=== PATIENT | female | born 2000 | race Caucasian/White ===

== ENCOUNTER 2023-11-02 09:00 | Inpatient (IN) ==
[2023-11-02] MEDS ORDERED: LIDOCAINE 1% LOCAL 20 ML VIAL INFIL PRN (09:09)
[2023-11-02] MEDS: LACTATED RINGER'S 1,000 ML IV PRN (09:25)
[2023-11-02 10:13] LABS: Hematocrit (blood only) 37.4 % (37.0-47.0); Hemoglobin 12.6 g/dl (12.0-16.0); Mean Corpuscular Hemoglobin 27.8 pg (25.0-34.0); Mean Corpuscular Hgb Conc 33.7 g/dL (32.0-36.0); Mean Corpuscular Volume 82.6 fL (80.0-100.0); Mean Platelet Volume 11.1 fL (9.4-12.4); Platelet Count 251 K/uL (130-400); RDW Coefficient of Variation 13.1 % (11.5-14.5); RDW Standard Deviation 39.1 fL (36.4-46.3); Red Blood Count 4.53 M/uL (4.20-5.40); White Blood Count 26.82 K/ul (4.8-10.8)
--- NOTE | 2023-11-02 10:23 | Anesthesiology Consultation ---
Date of Service November 02, 2023 Assessment & Plan (1) Encounter for pre-operative examination: Chart Review Chart Review: Acceptable Risk for Labor Epidural History Height/Weight Height: 5 ft 3 in Weight: 92.533 kg Allergies Allergy/AdvReac Type Severity Reaction Status Date / Time No Known Allergies Allergy Verified 11/02/23 09:20 Medications Home Medications Medication Instructions Recorded Confirmed Last Taken vits,calcium 21-iron fum 1 tab PO HS 04/23/23 11/02/23 11/01/23 14 mg iron-folic acid 400 mcg tablet ( Complete) omeprazole 10 mg capsule,delayed 10 mg PO DAILY 10/31/23 11/02/23 11/01/23 release Active Medications Generic Name Dose Route Start Last Admin Trade Name Freq PRN Reason Stop Dose Admin Lactated Ringer's 1,000 mls @ 125 mls/hr 11/02/23 09:09 11/02/23 10:22 Lr IV 11/04/23 09:08 999 mls/hr .Q8H PRN Administration L&D Protocol Protocol Past Medical History Medical History History of chicken pox Past Family History Family History Denies family history of Ovarian cancer Breast cancer Colorectal cancer Past Surgical History Surgical History No history of previous surgery Social History Smoking Status: Former smoker Do You Dip or Chew Tobacco: No Hx Alcohol Use: No Hx Substance Use: No substance use type: does not use Physical Exam Vital Signs Last Vital Signs Temp 37 C 11/02/23 09:19 Pulse 96 H 11/02/23 10:20 Resp 16 11/02/23 09:19 BP 117/63 11/02/23 09:06 Pulse Ox 91 11/02/23 10:20 Testing Laboratory Results 11/02/23 09:39
[2023-11-02] MEDS: fentaNYL citrate PF 100 MCG/2 ML VIAL ONE (10:51)
[2023-11-02] MEDS: LIDOCAINE 2%/EPINEPHRINE 1:200,000 20 ML PF ONE (10:52)
[2023-11-02] MEDS: BUPIVACAINE 0.25% PF 30 ML VIAL ONE (10:52)
[2023-11-02] MEDS: fentANYL 2 MCG/ML BUPIVacaine 0.125%-NSS 100ML BAG ONE (10:52)
[2023-11-02] MEDS: ePHEDrine sulfate 50 MG/ML AMP ONE (10:53)
[2023-11-02] MEDS ORDERED: ePHEDrine sulfate 50 MG/ML AMP IV PRN (11:00)
[2023-11-02] MEDS ORDERED: ONDANSETRON INJ 2 MG/ML 2 ML VIAL IV PRN (11:00)
[2023-11-02] MEDS ORDERED: BUPIVACAINE 0.25% PF 30 ML VIAL EPI PRN (11:00)
[2023-11-02] MEDS ORDERED: NALOXONE HCL 1 MG in SODIUM CHLORIDE 0.9% 1,000 ML IV PRN (11:00)
[2023-11-02] MEDS ORDERED: fentaNYL citrate PF 100 MCG/2 ML VIAL EPI PRN (11:00)
[2023-11-02] MEDS ORDERED: LIDOCAINE 2% MPF LOCAL 5 ML VIAL EPI PRN (11:00)
[2023-11-02] MEDS ORDERED: fentANYL 2 MCG/ML BUPIVacaine 0.125%-NSS 100ML BAG EPI PRN (11:00)
[2023-11-02] MEDS ORDERED: ROPIVACAINE 0.5% PF 5 MG/ML 20 ML VIAL EPI PRN (11:00)
[2023-11-02] MEDS ORDERED: NALOXONE HCL 0.4 MG/1 ML VIAL/CARP IV PRN (11:00)
[2023-11-02] MEDS ORDERED: SODIUM CHLORIDE 0.9% PF INJ 10 ML VIAL EPI PRN (11:00)
[2023-11-02] MEDS: SODIUM CHLORIDE 0.9% PF INJ 10 ML VIAL ONE (11:01)
[2023-11-02] MEDS: SODIUM CHLORIDE 0.9% PF INJ 10 ML VIAL EPI STA (11:43)
[2023-11-02] MEDS: LIDOCAINE 2%/EPINEPHRINE 1:200,000 20 ML PF EPI STA (11:43)
[2023-11-02] MEDS: BUPIVACAINE 0.25% PF 30 ML VIAL EPI STA (11:43)
[2023-11-02] MEDS: fentaNYL citrate PF 100 MCG/2 ML VIAL EPI STA (11:43)
[2023-11-02] MEDS: OXYTOCIN 30 UNITS/NSS 30 UNITS/500 ML BAG IV PRN (15:25)
--- NOTE | 2023-11-02 15:31 | Delivery Summary ---
Vaginal Delivery Summary Date of Service November 02, 2023 Vaginal Delivery Summary and 2nd Degree LAC Patient arrived in active labor at 5 cm requested epidural artificial rupture of membranes then spontaneously presented to fully dilated she did have a prolonged D cells likely related to head compression and rapid descent she was unable to push with an improved heart rate delivering a baby in occiput anterior position. There was a tight nuchal cord was clamped and cut before delivery of the body baby's mouth was then suctioned with bulb there was some thin meconium live vigorous male Cord gases obtained cord blood obtained placenta removed with traction IV Pitocin started uterine tone appropriate small second-degree tear repaired with 3-0 Vicryl sponge and instrument counts correct QBL 117 mL [facility] Vaginal Delivery Charge Delivery Type Details: and 2nd Degree LAC
[2023-11-02] MEDS ORDERED: HYDROCORTISONE ACETATE 25 MG SUPP PR PRN (15:52)
[2023-11-02] MEDS ORDERED: oxyCODONE/ACETAMINOPHEN 5mg/325mg TAB PO PRN (15:52)
[2023-11-02] MEDS ORDERED: bisacodyL 10 MG SUPP PR PRN (15:52)
[2023-11-02] MEDS ORDERED: ACETAMINOPHEN 325 MG TAB PO PRN (15:52)
[2023-11-02] MEDS ORDERED: OXYTOCIN 30 UNITS/NSS 30 UNITS/500 ML BAG IV PRN (15:52)
[2023-11-02 16:06] LABS: Base Excess Cord Arterial Bld -9.9 mEq/L (-9-1.8); Base Excess Cord Venous Blood -9.5 mEq/L (-7.7-1.9); CO2 Cord Arterial Blood 62 mmHg (39.1-73.5); Cord Venous Blood HCO3 17 mmol/L (18.4-26.8); Cord Venous Blood PCO2 39 mmHg (30.4-57.2); Cord Venous Blood PO2 33 mmHg (14.1-43.3); Cord Venous Blood pH 7.25 (7.20-7.44); HCO3 Cord Arterial Blood 20 mmol/L (19.7-28.5); O2 Saturation Cord Venous Bld 66.5 % (<68); Oxygen Sat Cord Arterial Blood < 60.0 % (<60); PO2 Cord Arterial Blood 22 mmHg (4.1-31.7); pH Cord Arterial Blood 7.12 (7.1-7.38)
[2023-11-02] MEDS: DIPHTHER/TETAN/PERTUS Vaccine (Tdap, Adol/Adult) 0.5mL IM ONE (17:04)
--- NOTE | 2023-11-02 18:19 | Anesthesia Procedure Note ---
Date of Service November 02, 2023 Anesthesia Post Epidural Note Vital Signs Vital Signs: Temp Pulse Resp BP Pulse Ox 37.2 C 94 H 18 126/56 L 98 11/02/23 15:00 11/02/23 17:48 11/02/23 15:00 11/02/23 17:48 11/02/23 15:27 Notes Mental Status: alert / awake / arousable and participated in evaluation Nausea / Vomiting: adequately controlled Pain: adequately controlled Airway Patency, RR, SpO2: stable & adequate BP & HR: stable & adequate Hydration State: stable & adequate Neuraxial Anesthesia: was administered and sensory block is resolving Anesthetic Complications: no major complications apparent Epidural: Removed without complications and With tip intact
[2023-11-02] MEDS: IBUPROFEN 600 MG TAB PO PRN (20:31)
[2023-11-02] MEDS: DOCUSATE SODIUM 100 MG CAP PO SCH (20:32)
[2023-11-02] MEDS: BENZOCAINE 20% SPRY 85 APPLN/85 GM CAN EXT PRN (20:32)
[2023-11-03 06:59] LABS: Hematocrit (blood only) 29.7 % (37.0-47.0); Mean Corpuscular Hemoglobin 28.3 pg (25.0-34.0); Mean Corpuscular Hgb Conc 33.7 g/dL (32.0-36.0); Mean Corpuscular Volume 84.1 fL (80.0-100.0); Mean Platelet Volume 11.3 fL (9.4-12.4); Platelet Count 204 K/uL (130-400); RDW Coefficient of Variation 13.5 % (11.5-14.5); RDW Standard Deviation 41.4 fL (36.4-46.3); Red Blood Count 3.53 M/uL (4.20-5.40); White Blood Count 19.72 K/ul (4.8-10.8)
--- NOTE | 2023-11-03 07:23 | Obstetrical Progress Note ---
Date of Service November 03, 2023 Assessment & Plan (1) Delivery normal: Plan: 1st PPD 24 hours will be completed by evening Discharge tomorrow? Admission and Anticipated Discharge Date Admission Date: November 02, 2023 Supervising Physician Co-Signing Physician Notes Resident Physician Supervision Note: I was present with [Name of resident] during the history and exam. I discussed the case with the resident and agree with the findings and plan as documented in the note. Any exceptions or clarifications are listed here: [None] Documented By: Jordan Adorno MD, FACOG Subjective 1st PPD foll with laceration at term Doing well No active complains Lochia: Moderate Bottle feeding: no Br issue Passed gas, Urination normally Review of Systems Review of Systems: As per HPI Physical Exam Physical Exam: General: Alert and oriented. No acute distress. CV: Regular rate and rhythm. No murmurs. Respiratory: CTA bilaterally. No rhonchi, wheezes, or crackles. No increased work of breathing. Abdomen: Positive bowel sounds. Soft, nontender, non distended. Uterus: Fundus firm and palpable few cm below the umbilicus. Lower extremities: No LE edema. No deep calf pain. Results & Data Vital Signs (Past 12 Hours) Vital Signs Temp Pulse Resp BP Pulse Ox O2 Del Method 11/03/23 04:09 36.6 C 80 16 134/70 98 Room Air 11/03/23 00:20 36.7 C 88 16 117/58 L 99 Room Air
[2023-11-03] MEDS: PRENATAL VITAMIN 1 TAB PO SCH (08:47)
[2023-11-03] MEDS: PANTOprazole 40 MG TAB PO SCH (08:47)
[2023-11-03 19:25] VITALS: RESP 18; O2SAT 97
[2023-11-03] MEDS: bisacodyL 5 MG TABEC PO SCH (21:33)
--- NOTE | 2023-11-04 06:38 | Obstetrical Progress Note ---
Date of Service November 04, 2023 Assessment & Plan (1) Delivery normal: Plan: 2nd PPD foll at term Doing well No new issues Plan: Discharge as per protocol Admission and Anticipated Discharge Date Admission Date: November 02, 2023 Supervising Physician Co-Signing Physician Notes Resident Physician Supervision Note: I interviewed and examined the patient. Discussed with Dr. Constantino and agree with findings and plan as documented in the note. Any exceptions or clarifications are listed here: PP2 s/p , doing well. DC home today Documented By: Trinh Rosas MD Subjective 2nd PPD foll with laceration at term Doing well No active complains Lochia: Moderate Bottle feeding: no Br issue Passed gas, Urination normally Normal diet Review of Systems Review of Systems: As per HPI Physical Exam Physical Exam: General: Alert and oriented. No acute distress. CV: Regular rate and rhythm. No murmurs. Respiratory: CTA bilaterally. No rhonchi, wheezes, or crackles. No increased work of breathing. Abdomen: Positive bowel sounds. Soft, nontender, non distended. Uterus: Fundus firm and palpable suprapubic, well involuted Lower extremities: No LE edema. No deep calf pain. Results & Data Vital Signs (Past 12 Hours) Vital Signs Temp Pulse Resp BP Pulse Ox O2 Del Method 11/03/23 23:05 36.5 C 74 18 101/61 97 Room Air 11/03/23 19:15 36.5 C 78 18 107/65 97 Room Air Resident Activity Tracking Resident Involvement: Resident Care Provided Care Provided: OB Delivery
[2023-11-04 08:45] VITALS: BP 112/66; PULSE 68; TEMP 97.9
--- NOTE | 2023-11-05 06:23 | Coding Query ---
CODING QUERY To promote full compliance with coding requirements relating to patient care, provider participation is requested in all cases of aircraft fuselage framer uncertainty. Please assist us with the question(s) below: Coding Question(s): Per vaginal delivery summary, "small second-degree tear repaired with 3-0 Vicryl." Can you please specify the site of this laceration? Site is: Perineum (this is the second time in recent days that I have been asked this, 2nd degree always is in the perineum) Physician's Response(s): Thank you Vielka Rojas Principal Diagnosis: "that condition established after study, to be chiefly responsible for occasioning the admission of the patient to the hospital for care." Co-Existing Principal Diagnosis: "when two or more diagnoses equally meet the criteria for principal diagnosis as determined by the circumstances of admission, diagnostic work up, and/or therapy provided, and the Alphabetic Index, Tabular List, or another coding guideline does not provide sequencing direction, any one of the diagnoses may be sequenced first." "When the physician has documented what appears to be a current diagnosis in the body of the record, but has not included the diagnosis in the final diagnostic statement, the physician should be asked whether the diagnosis should be added." (Source Coding [facility] 2 QTR90. p3-4) [email or web address]
== END 2023-11-04 10:44 | disposition home or self-care (01) | DRG 807 ==
LOC: OPB 09:00 → 4S1 09:02 → 4E2 18:58